=== PATIENT | female | born 1990 | race Hispanic/Latino ===

== ENCOUNTER 2017-09-13 18:32 | Emergency (ER) | payer SELFPAY ==
[2017-09-13 20:28] LABS: Urine Blood NEGATIVE (NEG); Urine Glucose NEGATIVE (NEG); Urine Protein NEGATIVE (NEG); Urine Specific Gravity 1.025 (1.005-1.030)
[2017-09-13] MEDS ORDERED: DEXAMETHASONE 10 MG/ML VIAL ONE (21:28)
[2017-09-13] MEDS ORDERED: KETOROLAC 30 MG/ML INJ ONE (21:29)
[2017-09-13] MEDS ORDERED: DIPHENHYDRAMINE 50 MG/ML VIAL ONE ×2 (21:29→22:40)
[2017-09-13] MEDS ORDERED: METOCLOPRAMIDE 10 MG/2mL INJ ONE (21:29)
--- NOTE | 2017-09-13 23:28 | ER ---
Nurse's Notes [facility] Name: Brittney Wang Age: 27 yrs Sex: Female : 1990 Arrival Date: 09/13/2017 Time: 19:02 Bed 20 Private MD: Diagnosis: Migraine Presentation: 09/13 19:05 Presenting complaint: Patient states: I have had a really bad headache all week and now la1 I can barely eat and I have been dry heaving a lot from the pain. Transition of care: patient was not received from another setting of care. Onset of symptoms was September 13, 2017. Care prior to arrival: None. 19:05 Method Of Arrival: Ambulatory la1 19:05 Acuity: SUKUMAR 3 la1 Triage Assessment: 19:20 Headache History: The patient has had previous headaches and this one is similar to jd3 previous episodes. Pain: Pain began 1 week ago Also complains of nausea. 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 - Social history:: Smoking status: Patient/guardian denies using tobacco. Screenin:19 Abuse screen: Denies threats or abuse. Nutritional screening: No deficits noted. jd3 Tuberculosis screening: No symptoms or risk factors identified. Fall Risk None identified. Assessment: 19:15 General: Appears uncomfortable, Behavior is cooperative, appropriate for age, anxious, jd3 Reports Hx of viral meningitis. Pain: Complains of pain in head Pain currently is 8 out of 10 on a pain scale. Quality of pain is described as sharp, throbbing, Is continuous. Neuro: Level of Consciousness is awake, alert, obeys commands, Oriented to person, place, time, situation, Moves all extremities. Gait is steady, Speech is normal, Facial symmetry appears normal, Pupils are PERRLA, Intact. Cardiovascular: Heart tones S1 S2 present Capillary refill < 3 seconds Patient's skin is warm and dry. Respiratory: Airway is patent Respiratory effort is even, unlabored, Respiratory pattern is regular, symmetrical, Breath sounds are clear bilaterally. GI: Abdomen is round Reports nausea, Patient currently denies abdominal pain. : No signs and/or symptoms were reported regarding the genitourinary system. EENT: No signs and/or symptoms were reported regarding the EENT system. Derm: Skin is intact, Skin is dry, Skin is normal, Skin temperature is warm. Musculoskeletal: Circulation, motion, and sensation intact. Range of motion: intact in all extremities. 21:41 Reassessment: Patient appears in no apparent distress at this time. Patient and/or jd3 family updated on plan of care and expected duration. Pain level reassessed. Patient is alert, oriented x 3, equal unlabored respirations, skin warm/dry/pink. Vital Signs: 19:05 BP 123 / 83; Pulse 90; Resp 16; Temp 98.3; Pulse Ox 100% on R/A; Weight 58.97 kg; la1 Height 4 ft. 9 in. (144.78 cm); 21:40 BP 115 / 69; Pulse 81; Resp 17 S; Pulse Ox 97% on R/A; jd3 23:41 BP 103 / 65; Pulse 74; Resp 17 S; Pulse Ox 98% on R/A; Pain 0/10; jd3 19:05 Body Mass Index 28.13 (58.97 kg, 144.78 cm) la1 ED Course: 19:02 Patient arrived in ED. as 19:05 Triage completed. la1 19:06 Arm band placed on right wrist. la1 19:15 Mack Swann, MACY is Primary Nurse. jd3 19:19 Patient has correct armband on for positive identification. Bed in low position. Call jd3 light in reach. Side rails up X 1. 19:47 F[facility] Zamora [facility]. jr8 19:47 Zane Haro MD is Attending Physician. jr8 21:05 Inserted saline lock: 20 gauge in right antecubital area, using aseptic technique. jd3 Blood collected. 23:41 No provider procedures requiring assistance completed. IV discontinued, intact, jd3 bleeding controlled, No redness/swelling at site. Pressure dressing applied. Administered Medications: 21:20 Drug: Decadron - Dexamethasone 10 mg Route: IVP; Site: right antecubital; jd3 23:42 Follow up: Response: No adverse reaction; Marked relief of symptoms jd3 21:21 Drug: Reglan 10 mg Route: IVP; Site: right antecubital; jd3 23:42 Follow up: Response: No adverse reaction; Marked relief of symptoms jd3 21:21 Drug: Benadryl 25 mg Route: IVP; Site: right antecubital; jd3 23:42 Follow up: Response: No adverse reaction; Marked relief of symptoms jd3 21:21 Drug: TORadol 30 mg Route: IVP; Site: right antecubital; jd3 23:42 Follow up: Response: No adverse reaction; Marked relief of symptoms jd3 22:25 Drug: Benadryl 25 mg Route: IVP; Site: right antecubital; jd3 23:43 Follow up: Response: No adverse reaction; Marked relief of symptoms jd3 Outcome: 23:27 Discharge ordered by . jr8 23:41 Discharged to home ambulatory, with family. jd3 23:41 Condition: stable 23:41 Discharge instructions given to patient, Instructed on discharge instructions, follow up and referral plans. Demonstrated understanding of instructions, follow-up care, medications, Prescriptions given X 1. 23:43 Patient left the ED. jd3 Signatures: Coreen Pop Josh, PA PA jr8 Lito Rust RN RN la1 Mack Swann RN RN jd3 Corrections: (The following items were deleted from the chart) 19:18 19:15 General: Appears uncomfortable, jd3 jd3 21:42 21:40 BP 107 / 79; Pulse 111bpm; Resp 17bpm; Spontaneous; Pulse Ox 100% RA; jd3 jd3
--- NOTE | 2017-09-13 23:28 | EDPHYS ---
Physician Documentation [facility] Name: Brittney Wang Age: 27 yrs Sex: Female : 1990 Arrival Date: 09/13/2017 Time: 19:02 Bed 20 Private MD: ED Physician Zane Haro HPI: 09/13 21:13 This 27 yrs old Female presents to ER via Ambulatory with complaints of jr8 Headache. 21:13 The patient complains of pain to the forehead. The patient describes the headache as jr8 constant, throbbing. Onset: The symptoms/episode began/occurred acutely, 1 week(s) ago. Associated signs and symptoms: Pertinent positives: nausea, Photophobia. Severity of symptoms: At its worst the pain was moderate, in the emergency department the pain is unchanged. Headache History: Other lasting longer this time. The symptoms are alleviated by nothing. the symptoms are aggravated by lights, movement, noise. The patient has experienced similar episodes in the past, several times. The patient has not recently seen a physician. 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 - Social history:: Smoking status: Patient/guardian denies using tobacco. ROS: 21:13 Eyes: Negative for injury, pain, redness, and discharge, ENT: Negative for injury, jr8 pain, and discharge, Neck: Negative for injury, pain, and swelling, Cardiovascular: Negative for chest pain, palpitations, and edema, Respiratory: Negative for shortness of breath, cough, wheezing, and pleuritic chest pain, Abdomen/GI: Negative for abdominal pain, nausea, vomiting, diarrhea, and constipation, Back: Negative for injury and pain, MS/Extremity: Negative for injury and deformity, Skin: Negative for injury, rash, and discoloration. 21:13 Neuro: Positive for dizziness, headache, Negative for altered mental status, gait disturbance, hearing loss, loss of consciousness, numbness, seizure activity, speech changes, syncope, near syncope, tingling, tinnitus, tremor, visual changes, weakness. Exam: 21:13 Head/Face: Normocephalic, atraumatic. Eyes: Pupils equal round and reactive to light, jr8 extra-ocular motions intact. Lids and lashes normal. Conjunctiva and sclera are non-icteric and not injected. Cornea within normal limits. Periorbital areas with no swelling, redness, or edema. ENT: Nares patent. No nasal discharge, no septal abnormalities noted. Tympanic membranes are normal and external auditory canals are clear. Oropharynx with no redness, swelling, or masses, exudates, or evidence of obstruction, uvula midline. Mucous membranes moist. Neck: Trachea midline, no thyromegaly or masses palpated, and no cervical lymphadenopathy. Supple, full range of motion without nuchal rigidity, or vertebral point tenderness. No Meningismus. Cardiovascular: Regular rate and rhythm with a normal S1 and S2. No gallops, murmurs, or rubs. Normal PMI, no JVD. No pulse deficits. Respiratory: Lungs have equal breath sounds bilaterally, clear to auscultation and percussion. No rales, rhonchi or wheezes noted. No increased work of breathing, no retractions or nasal flaring. Abdomen/GI: Soft, non-tender, with normal bowel sounds. No distension or tympany. No guarding or rebound. No evidence of tenderness throughout. Back: No spinal tenderness. No costovertebral tenderness. Full range of motion. Skin: Warm, dry with normal turgor. Normal color with no rashes, no lesions, and no evidence of cellulitis. MS/ Extremity: Pulses equal, no cyanosis. Neurovascular intact. Full, normal range of motion. 21:13 Neuro: Orientation: to person, place, time \T\ situation. Mentation: is normal, Memory: is normal, immediate memory is intact, recent memory is intact, remote memory is intact, Cranial nerves: CN I not tested, CN II- XII are normal as tested, visual garvey are intact. extraocular movements are intact, Facial palsy and sensory deficits are absent. Nystagmus is absent. Speech is clear and appropriate. Tongue strength is normal, Cerebellar function: normal finger to nose testing, heel to andrew testing is normal, Motor: moves all fours, strength is 5/5 in all extremities, Sensation: no obvious gross deficits, Gait: not tested. seizure activity, is not displayed by the patient, Abnormal movements: there are no abnormal movements. Vital Signs: 19:05 BP 123 / 83; Pulse 90; Resp 16; Temp 98.3; Pulse Ox 100% on R/A; Weight 58.97 kg; la1 Height 4 ft. 9 in. (144.78 cm); 21:40 BP 115 / 69; Pulse 81; Resp 17 S; Pulse Ox 97% on R/A; jd3 23:41 BP 103 / 65; Pulse 74; Resp 17 S; Pulse Ox 98% on R/A; Pain 0/10; jd3 19:05 Body Mass Index 28.13 (58.97 kg, 144.78 cm) la1 MDM: 19:47 Patient medically screened. [facility] 23:27 Data reviewed: vital signs, nurses notes, and as a result, I will discharge patient. [facility] Data interpreted: Pulse oximetry: on room air is 97 %. Interpretation: normal. Counseling: I had a detailed discussion with the patient and/or guardian regarding: the historical points, exam findings, and any diagnostic results supporting the discharge/admit diagnosis, the need for outpatient follow up, a family practitioner, to return to the emergency department if symptoms worsen or persist or if there are any questions or concerns that arise at home. Response to treatment: the patient's symptoms have resolved after treatment. 09/13 20:27 Order name: Urine Dipstick--Ancillary (enter results); Complete Time: 20:30 [facility] 09/13 20:27 Order name: Urine --Ancillary (enter results); Complete Time: 20:30 [facility] 09/13 19:48 Order name: Urine Test (obtain specimen); Complete Time: 21:00 [facility] 09/13 19:48 Order name: Urine Dipstick-Ancillary (obtain specimen); Complete Time: 21:00 [facility] 09/13 20:24 Order name: IV; Complete Time: 21:06 [facility] Administered Medications: 21:20 Drug: Decadron - Dexamethasone 10 mg Route: IVP; Site: right antecubital; jd3 23:42 Follow up: Response: No adverse reaction; Marked relief of symptoms jd3 21:21 Drug: Reglan 10 mg Route: IVP; Site: right antecubital; jd3 23:42 Follow up: Response: No adverse reaction; Marked relief of symptoms jd3 21:21 Drug: Benadryl 25 mg Route: IVP; Site: right antecubital; jd3 23:42 Follow up: Response: No adverse reaction; Marked relief of symptoms jd3 21:21 Drug: TORadol 30 mg Route: IVP; Site: right antecubital; jd3 23:42 Follow up: Response: No adverse reaction; Marked relief of symptoms jd3 22:25 Drug: Benadryl 25 mg Route: IVP; Site: right antecubital; jd3 23:43 Follow up: Response: No adverse reaction; Marked relief of symptoms jd3 Disposition: 09/14 00:20 Co-signature as Attending Physician, Zane Haro MD. laureano Disposition: 09/13/17 23:27 Discharged to Home. Impression: Migraine. - Condition is Stable. - Discharge Instructions: Migraine Headache. - Prescriptions for Fiorinal 50- 325-40 mg Oral Capsule - take 1 capsule by ORAL route every 4 hours As needed - not to exceed 6 capsules per day; 20 capsule. - Medication Reconciliation Form, Thank You Letter, Antibiotic Education, Prescription Opioid Use form. - Follow up: Private Physician; When: 2 - 3 days; Reason: Recheck today's complaints, Continuance of care, Re-evaluation by your physician. - Problem is new. - Symptoms have improved. Signatures: Dispatcher [employer] EDZane Little MD MD pkFadi Gao PA PA jr8 Lito Rust RN RN la1 Mack Swann RN RN jd3
[2017-09-13 23:49] VITALS: TEMP 98.3
[2017-09-13 23:51] VITALS: BP 103/65; O2SAT 98
== END 2017-09-13 23:43 | disposition home or self-care (01) ==
LOC: ER 18:32
DX: G43.909 Migraine, unspecified, not intractable, without status migrainosus (principal)
CPT/HCPCS: 81003; 81025; 96374; 96375; 99284; J1100; J2765

== ENCOUNTER 2018-07-19 17:18 | Emergency (ER) | payer SELFPAY ==
--- NOTE | 2018-07-19 20:49 | ER ---
Nurse's Notes [facility] Name: Brittney Wang Age: 28 yrs Sex: Female : 1990 Arrival Date: 07/19/2018 Time: 17:22 Bed Waiting Private MD: None, None Diagnosis: Presentation: 07/19 17:31 Presenting complaint: Patient states: pt reports having headache at the base of her sg neck, described as contractions, reports that losing voice on Thursday, bodyaches started Thursday, and today reports having N/V and unable to hold liquids, reports throwing up water as well. Transition of care: patient was not received from another setting of care. Onset of symptoms was July 19, 2018. Risk Assessment: Do you want to hurt yourself or someone else? Patient reports no desire to harm self or others. Initial Sepsis Screen: Does the patient meet any 2 criteria? No. Patient's initial sepsis screen is negative. Care prior to arrival: None. 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 - Social history:: Smoking status: Patient/guardian denies using tobacco. - Ebola Screening: : Patient negative for fever greater than or equal to 101.5 degrees Fahrenheit, and additional compatible Ebola Virus Disease symptoms Patient denies exposure to infectious person Patient denies travel to an Ebola-affected area in the 21 days before illness onset No symptoms or risks identified at this time. Vital Signs: 17:33 BP 121 / 93; Pulse 98; Resp 19; Temp 98.0; Pulse Ox 100% on R/A; Weight 68.04 kg; sg Height 5 ft. 2 in. (157.48 cm); Pain 10/10; 17:33 Body Mass Index 27.44 (68.04 kg, 157.48 cm) sg ED Course: 17:22 Patient arrived in ED. tw3 17:22 None, None is Private Physician. tw3 17:31 Triage completed. sg 17:31 Arm band placed on. sg 19:24 Patient's name was called from ER [employer]. No response. 19:26 David Lopez MD is Attending Physician. 20:00 Patient's name was called from ER [email or web address]. No response. 20:47 Patient's [facility] No response. fc Administered Medications: No medications were administered Outcome: 20:47 Patient left the ED. fc Signatures: Graeme Mckeon RN RN Shara Crespo RN RN Andrei, Keena tw3 David Lopez MD MD
[2018-07-19 20:57] VITALS: BP 121/93; TEMP 98; O2SAT 100
== END 2018-07-19 20:47 | disposition left against medical advice (07) ==
LOC: ER 17:18
DX: R51 Headache (principal); R11.2 Nausea with vomiting, unspecified; Z53.21 Procedure and treatment not carried out due to patient leaving prior to being seen by health care provider
CPT/HCPCS: 99281

== ENCOUNTER 2018-08-19 12:44 | Emergency (ER) | payer SELFPAY ==
[2018-08-19] MEDS ORDERED: ONDANSETRON 4 MG (ODT) TAB ONE (13:08)
--- NOTE | 2018-08-19 15:50 | EDPHYS ---
Physician Documentation [facility] Name: Brittney Wang Age: 28 yrs Sex: Female : 1990 Arrival Date: 08/19/2018 Time: 12:46 Bed 10 Private MD: ED Physician Layo Suresh HPI: 08/19 13:59 This 28 yrs old Female presents to ER via Ambulatory with complaints of kav Vomiting, Headache, Ear Pain. 15:44 The patient or guardian reports cough, flu symptoms, low-grade fever, myalgias, no kav appetite. Onset: The symptoms/episode began/occurred acutely. 15:45 Onset: The symptoms/episode began/occurred 2 day(s) ago. Severity of symptoms: At their kav worst the symptoms were moderate, just prior to arrival. Modifying factors: The symptoms are alleviated by nothing, the symptoms are aggravated by nothing. Associated signs and symptoms: Pertinent positives: earache, fever, nausea, vomiting, Pertinent negatives:. The patient has not experienced similar symptoms in the past. The patient has not recently seen a physician. 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 - Social history:: Smoking status: Patient/guardian denies using tobacco. - Ebola Screening: : No symptoms or risks identified at this time. - Family history:: not pertinent. - Hospitalizations: : No recent hospitalization is reported. ROS: 15:45 Constitutional: Negative for fever, chills, and weight loss, Eyes: Negative for injury, kav pain, redness, and discharge, ENT: Negative for injury, pain, and discharge, Neck: Negative for injury, pain, and swelling, Cardiovascular: Negative for chest pain, palpitations, and edema, Back: Negative for injury and pain, : Negative for injury, bleeding, discharge, and swelling, MS/Extremity: Negative for injury and deformity, Skin: Negative for injury, rash, and discoloration, Neuro: Negative for headache, weakness, numbness, tingling, and seizure, Psych: Negative for depression, anxiety, suicide ideation, homicidal ideation, and hallucinations, Allergy/Immunology: Negative for hives, rash, and allergies, Endocrine: Negative for neck swelling, polydipsia, polyuria, polyphagia, and marked weight changes, Hematologic/Lymphatic: Negative for swollen nodes, abnormal bleeding, and unusual bruising. 15:45 Respiratory: Positive for cough, "sounds productive", Negative for shortness of breath, wheezing. 15:45 Abdomen/GI: Positive for nausea and vomiting, Negative for diarrhea. Exam: 15:45 Constitutional: This is a well developed, well nourished patient who is awake, alert, kav and in no acute distress. Head/Face: Normocephalic, atraumatic. Eyes: Pupils equal round and reactive to light, extra-ocular motions intact. Lids and lashes normal. Conjunctiva and sclera are non-icteric and not injected. Cornea within normal limits. Periorbital areas with no swelling, redness, or edema. ENT: Nares patent. No nasal discharge, no septal abnormalities noted. Tympanic membranes are normal and external auditory canals are clear. Oropharynx with no redness, swelling, or masses, exudates, or evidence of obstruction, uvula midline. Mucous membranes moist. Neck: Trachea midline, no thyromegaly or masses palpated, and no cervical lymphadenopathy. Supple, full range of motion without nuchal rigidity, or vertebral point tenderness. No Meningismus. Chest/axilla: Normal chest wall appearance and motion. Nontender with no deformity. No lesions are appreciated. Cardiovascular: Regular rate and rhythm with a normal S1 and S2. No gallops, murmurs, or rubs. Normal PMI, no JVD. No pulse deficits. Back: No spinal tenderness. No costovertebral tenderness. Full range of motion. Skin: Warm, dry with normal turgor. Normal color with no rashes, no lesions, and no evidence of cellulitis. MS/ Extremity: Pulses equal, no cyanosis. Neurovascular intact. Full, normal range of motion. Neuro: Awake and alert, GCS 15, oriented to person, place, time, and situation. Cranial nerves II-XII grossly intact. Motor strength 5/5 in all extremities. Sensory grossly intact. Cerebellar exam normal. Normal gait. Psych: Awake, alert, with orientation to person, place and time. Behavior, mood, and affect are within normal limits. 15:45 Respiratory: the patient does not display signs of respiratory distress, Respirations: normal, no acute changes, Breath sounds: are clear throughout, no acute changes, throughout. 15:45 Abdomen/GI: Inspection: abdomen appears normal, Bowel sounds: normal, Palpation: abdomen is soft and non-tender. Vital Signs: 12:51 BP 133 / 88; Pulse 82; Resp 16; Temp 99.4; Pulse Ox 100% on R/A; Pain 7/10; hb MDM: 13:59 Medical screening is not applicable. [facility] 15:45 Differential Diagnosis: Bronchitis Influenza Upper Respiratory Infection Pneumonia. [facility] Data reviewed: vital signs, nurses notes, lab test result(s), Flu: positive. 08/19 12:53 Order name: Flu; Complete Time: 15:43 hb 08/19 15:43 Interpretation: Abnormal. [facility] 08/19 12:54 Order name: Strep; Complete Time: 15:43 hb 08/19 15:43 Interpretation: Within normal limits. [facility] 08/19 13:16 Order name: Throat Culture EDMS Administered Medications: 12:56 Drug: Zofran 4 mg Route: PO; hb 14:00 Follow up: Response: No adverse reaction iw Disposition: 16:20 Co-signature as Attending Physician, Azra NUNEZ I agree with the assessment and kdr plan of care. Disposition: 08/19/18 15:48 Discharged to Home. Impression: Influenza due to identified novel influenza A virus. - Condition is Stable. - Discharge Instructions: Influenza, Adult. - Prescriptions for Tamiflu 75 mg Oral Capsule - take 1 tablet by ORAL route every 12 hours for 5 days; 10 tablet. - Medication Reconciliation Form, Thank You Letter, Work release form form. - Follow up: Private Physician; When: 5 - 6 days; Reason: Recheck today's complaints, Continuance of care, Re-evaluation by your physician. - Problem is new. - Symptoms have improved. Signatures: Dispatcher [employer] EDMS Layo Suresh MD MD kdr Vern, Katherine, FNP FNP kav Williams, Irene, RN RN iw Baxter, Heather, RN RN Corrections: (The following items were deleted from the chart) 16:04 15:48 08/19/2018 15:48 Discharged to Home. Impression: Influenza due to identified iw novel influenza A virus. Condition is Stable. Forms are Medication Reconciliation Form, Thank You Letter, Antibiotic Education, Prescription Opioid Use. Follow up: Private Physician; When: 5 - 6 days; Reason: Recheck today's complaints, Continuance of care, Re-evaluation by your physician. Problem is new. Symptoms have improved. stacey
--- NOTE | 2018-08-19 15:50 | ER ---
Nurse's Notes [facility] Name: Brittney Wang Age: 28 yrs Sex: Female : 1990 Arrival Date: 08/19/2018 Time: 12:46 Bed 10 Private MD: Diagnosis: Influenza due to identified novel influenza A virus Presentation: 08/19 12:51 Presenting complaint: Nonproductive cough, headache, sore throat, body aches, fever, hb and N/V x 2 days. TMAX 100. Son tested flu + yesterday. Transition of care: patient was not received from another setting of care. Onset of symptoms was August 18, 2018. Risk Assessment: Do you want to hurt yourself or someone else? Patient reports no desire to harm self or others. Care prior to arrival: None. 12:51 Method Of Arrival: Ambulatory hb 12:51 Acuity: SUKUMAR 4 hb 15:30 Initial Sepsis Screen: Does the patient meet any 2 criteria? No. Patient's initial iw sepsis screen is negative. Does the patient have a suspected source of infection? No. Patient's initial sepsis screen is negative. Triage Assessment: 15:00 General: Appears in no apparent distress. Behavior is calm. GI: Reports vomiting. 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 - Social history:: Smoking status: Patient/guardian denies using tobacco. - Ebola Screening: : No symptoms or risks identified at this time. - Family history:: not pertinent. - Hospitalizations: : No recent hospitalization is reported. Screenin:00 Abuse screen: Denies threats or abuse. Denies injuries from another. Nutritional iw screening: No deficits noted. Tuberculosis screening: No symptoms or risk factors identified. Fall Risk None identified. Assessment: 15:00 General: Appears in no apparent distress. Behavior is calm, cooperative. General: iw Reports fever for 1-2 days. Pain: Complains of pain in head. Neuro: Level of Consciousness is awake, alert, obeys commands, Moves all extremities. Cardiovascular: Patient's skin is warm and dry. Respiratory: Respiratory effort is even, unlabored, Respiratory pattern is regular. GI: Abdomen is. Derm: Skin is intact, is healthy with good turgor. Vital Signs: 12:51 BP 133 / 88; Pulse 82; Resp 16; Temp 99.4; Pulse Ox 100% on R/A; Pain 7/10; hb ED Course: 12:46 Patient arrived in ED. rg4 12:51 Triage completed. hb 12:51 Arm band placed on. hb 13:48 Gillian Costa, RN is Primary Nurse. iw 13:59 Azra Marvin F[facility] kav 13:59 Layo Suresh MD is Attending Physician. kav 15:00 Patient has correct armband on for positive identification. iw 16:00 No provider procedures requiring assistance completed. Patient did not have IV access iw during this emergency room visit. Administered Medications: 12:56 Drug: Zofran 4 mg Route: PO; hb 14:00 Follow up: Response: No adverse reaction iw Outcome: 15:48 Discharge ordered by MD. kav 16:03 Discharged to home ambulatory. iw 16:03 Condition: good 16:03 Discharge instructions given to patient, Instructed on discharge instructions, follow up and referral plans. Demonstrated understanding of instructions, follow-up care, medications, Prescriptions given X 1. 16:04 Patient left the ED. iw Signatures: Azra Marvin FNP FNP kav Williams, Irene, RN RN Khushi Boateng RN RN hb Garcia, Rubi rg4 Corrections: (The following items were deleted from the chart) 12:53 12:51 Presenting complaint: Nonproductive cough, headache, body aches, fever, and N/V x hb 2 days. hb 12:54 12:51 Presenting complaint: Nonproductive cough, headache, body aches, fever, and N/V x hb 2 days. hb 12:55 12:51 Presenting complaint: Nonproductive cough, headache, sore throat, body aches, hb fever, and N/V x 2 days. TMAX 100 hb
[2018-08-19 16:16] VITALS: BP 133/88; TEMP 99.4; O2SAT 100
== END 2018-08-19 16:04 | disposition home or self-care (01) ==
LOC: ER 12:44
DX: J10.1 Influenza due to other identified influenza virus with other respiratory manifestations (principal)
CPT/HCPCS: 87070; 87081; 87804; 99283

== ENCOUNTER 2022-01-24 17:18 | Emergency (ER) | payer SELFPAY ==
[2022-01-24 18:52] LABS: Urine Blood Trace-intact (Negative); Urine Glucose Negative (Negative); Urine Protein Negative (Negative); Urine Specific Gravity 1.015 (1.005-1.030)
[2022-01-24 18:59] LABS: Absolute Lymphocytes (CBC) 2.1 K/uL (0.7-4.9); Hematocrit 35.8 % (36.0-45.0); Lymphocytes % 19.3 % (15.3-44.8); MCV 88.2 fL (80-100); MPV 8.5 fL (7.6-11.3); RBC Red Blood Cell Count 4.06 M/uL (3.86-4.86)
[2022-01-24] MEDS ORDERED: Ringers Lactate 1,000 ML IV ONE (19:06)
[2022-01-24 19:20] LABS: Magnesium 2.1 mg/dL (1.8-2.4); Potassium 3.6 mmol/L (3.5-5.1); Troponin High Sensitivity 4.2 pg/mL (<58.9)
--- NOTE | 2022-01-24 19:44 | EDPHYS ---
Physician Documentation [facility] Name: Brittney Wang Age: 31 yrs Sex: Female : 1990 Arrival Date: 01/24/2022 Time: 17:20 Bed 15 Private MD: ED Physician Elías Mueller HPI: 01/24 17:40 This 31 yrs old Female presents to ER via Ambulatory with complaints of 13wks jmm , High Blood Pressure. 17:40 The patient presents with a history of heart racing. Onset: The symptoms/episode jmm began/occurred acutely, this morning. Duration: The patient or guardian reports multiple episodes, that are intermittent, that wax and wane. Modifying factors: The symptoms are aggravated by nothing. The symptoms are alleviated by nothing. This is a 31 year old female currently 13 weeks iup that presents to the ED with complaints of fatigue beginning this morning with intermittent episodes of palpitations she describes as racing beats. Denies chest pain or shortness of breath. Patient has concerns she has elevated blood pressure. Also complains of intermittent headache but states these headaches are consistent with previous headaches. Denies fever or neck stiffness. 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 - Social history:: Smoking status: Patient denies any tobacco usage or history of. ROS: 17:40 Constitutional: Positive for fatigue. jmm 17:40 Cardiovascular: Positive for palpitations. 17:40 All other systems are negative. Exam: 17:40 Constitutional: This is a well developed, well nourished patient who is awake, alert, jmm and in no acute distress. Head/Face: atraumatic. Eyes: EOMI, no conjunctival erythema appreciated ENT: Moist Mucus Membranes Neck: Trachea midline, Supple Chest/axilla: Normal chest wall appearance and motion. Cardiovascular: Regular rate and rhythm. No edema appreciated Respiratory: Normal respirations, no respiratory distress appreciated Abdomen/GI: Non distended Back: Normal ROM Skin: General appearance color normal MS/ Extremity: Moves all extremities, no obvious deformities appreciated, no edema noted to the lower extremities Neuro: Awake and alert Psych: Behavior is normal, Mood is normal, Patient is cooperative and pleasant 17:40 ECG was reviewed by the Attending Physician. Vital Signs: 17:32 BP 133 / 75; Pulse 80; Resp 16; Temp 98.6(O); Pulse Ox 98% on R/A; Height 4 ft. 9 in. vg1 (144.78 cm); Pain 0/10; 19:00 BP 115 / 68; Pulse 77; Resp 18; Pulse Ox 100% ; Pain 0/10; kb3 20:45 BP 115 / 68; Pulse 78; Resp 18; Pulse Ox 100% ; Pain 0/10; kb3 MDM: 17:40 Patient medically screened. [facility] 19:41 Data reviewed: vital signs, nurses notes. Counseling: I had a detailed discussion with power the patient and/or guardian regarding: the historical points, exam findings, and any diagnostic results supporting the discharge/admit diagnosis, lab results, the need for outpatient follow up, to return to the emergency department if symptoms worsen or persist or if there are any questions or concerns that arise at home. ED course: Labs unremarkable, patient states feeling much better. Patient advised to follow up with pcp and otherwise given strict return precautions. Patient understood and agrees with the plan of care. . 01/24 18:00 Order name: Basic Metabolic Panel; Complete Time: 19:21 [facility] 01/24 18:00 Order name: CBC with Diff; Complete Time: 19:15 [facility] 01/24 18:00 Order name: Magnesium; Complete Time: 19:21 [facility] 01/24 18:00 Order name: NT PRO-BNP; Complete Time: 19:21 [facility] 01/24 18:00 Order name: Troponin HS; Complete Time: 19:21 [facility] 01/24 18:52 Order name: Urine Dipstick-Ancillary; Complete Time: 19:15 [facility] 01/24 18:00 Order name: EKG; Complete Time: 18:01 [facility] 01/24 18:00 Order name: Cardiac monitoring; Complete Time: 18:47 [facility] 01/24 18:00 Order name: EKG - Nurse/Tech; Complete Time: 18:47 [facility] 01/24 18:00 Order name: IV Saline Lock; Complete Time: 18:47 [facility] 01/24 18:00 Order name: Labs collected and sent; Complete Time: 18:47 [facility] 01/24 18:00 Order name: O2 Per Protocol; Complete Time: 18:47 [facility] 01/24 18:00 Order name: O2 Sat Monitoring; Complete Time: 18:47 [facility] 01/24 18:00 Order name: Urine Dipstick-Ancillary (obtain specimen); Complete Time: 18:56 [facility] 01/24 18:00 Order name: Heart Tones; Complete Time: 21:06 [facility] EC:40 Rate is 71 beats/min. Rhythm is regular. No ST changes noted. Reviewed by me. [facility] Administered Medications: 18:58 Drug: Lactated Ringers Solution 1000 ml Route: IV; Rate: 1000 bolus; Site: right kb3 antecubital; 20:15 Follow up: Response: No adverse reaction; IV Status: Completed infusion; IV Intake: kb3 1000ml Disposition Summary: 01/24/22 19:44 Discharge Ordered Location: Home [facility] Condition: Stable [facility] Diagnosis - Palpitations [facility] Followup: [facility] - With: Private Physician - When: 2 - 3 days - Reason: Recheck today's complaints, Continuance of care, Re-evaluation by your physician Discharge Instructions: - Discharge Summary Sheet [facility] - Hyperemesis Gravidarum [facility] - Palpitations [facility] - Eating Plan for Women [facility] Forms: - Medication Reconciliation Form [facility] - Thank You Letter [facility] - Antibiotic Education [facility] - Prescription Opioid Use [facility] - Work release form kb3 Prescriptions: - Diclegis 10-10 mg Oral tablet,delayed release (DR/EC) - take 1 tablet by ORAL route once daily; 30 tablet; Refills: 0, Product [facility] Selection Permitted - ondansetron 4 mg Oral tablet,disintegrating - take 1 tablet by ORAL route every 4-6 hours As needed; 30 tablet; Refills: 0, [facility] Product Selection Permitted Addendum: 01/26/2022 14:01 Attestation: The patient's history, exam findings, diagnostics, and a summary of any j r11 interventions or procedures was reviewed in detail with Duke GARCIA. Signatures: Dispatcher [employer] EDDuke Arciniega PA PA jmm Garcia, Victoria, RN RN vg1 Elías Mueller MD MD jr11 Jennifer Uriostegui RN RN kb3 Corrections: (The following items were deleted from the chart) 01/24 18:32 18:01 Chest Single View+RAD.RAD.BRZ ordered. EDMS EDMS
--- NOTE | 2022-01-24 19:44 | ER ---
Nurse's Notes [facility] Name: Brittney Wang Age: 31 yrs Sex: Female : 1990 Arrival Date: 01/24/2022 Time: 17:20 Bed 15 Private MD: Diagnosis: Palpitations Presentation: 01/24 17:32 Chief complaint: Patient states: Pt is approximately 13 weeks .At 1400 BP was vg1 149 systolic, at 1540 BP was 169 systolic. Denies CP, SOB, NV, or h/a. Stated "feels like my heart is racing.". Coronavirus screen: Vaccine status: Patient reports being unvaccinated. Client denies travel out of the [place] in the last 14 days. Ebola Screen: Patient denies exposure to infectious person. Patient denies travel to an Ebola-affected area in the 21 days before illness onset. Initial Sepsis Screen: Does the patient meet any 2 criteria? No. Patient's initial sepsis screen is negative. Does the patient have a suspected source of infection? No. Patient's initial sepsis screen is negative. Risk Assessment: Do you want to hurt yourself or someone else? Patient reports no desire to harm self or others. Onset of symptoms was January 24, 2022. 17:32 Method Of Arrival: Ambulatory vg1 17:32 Acuity: SUKUMAR 3 vg1 Triage Assessment: 17:35 General: Appears comfortable, Behavior is calm, cooperative. Pain: Denies pain. Neuro: vg1 Level of Consciousness is awake, alert, obeys commands, Oriented to person, place, time, situation. Cardiovascular: Patient's skin is warm and dry. Chest pain is denied. 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 - Social history:: Smoking status: Patient denies any tobacco usage or history of. Screenin:56 Abuse screen: Denies threats or abuse. Denies injuries from another. Nutritional kb3 screening: Has had N/V for 3 or more days. Tuberculosis screening: No symptoms or risk factors identified. Fall Risk None identified. Assessment: 17:56 Reassessment: No changes from previously documented assessment. General: Appears in no kb3 apparent distress. comfortable, Behavior is calm, cooperative. Pain: Denies pain. Cardiovascular: Reports High blood pressure with Heart tones present Capillary refill < 3 seconds Patient's skin is warm and dry. Pulses are 2+ in right radial artery and left radial artery Rhythm is regular Chest pain is denied. Respiratory: No deficits noted. GI: Reports nausea, vomiting. 19:00 General: Pt reports feeling well. No complaints. kb3 Vital Signs: 17:32 BP 133 / 75; Pulse 80; Resp 16; Temp 98.6(O); Pulse Ox 98% on R/A; Height 4 ft. 9 in. vg1 (144.78 cm); Pain 0/10; 19:00 BP 115 / 68; Pulse 77; Resp 18; Pulse Ox 100% ; Pain 0/10; kb3 20:45 BP 115 / 68; Pulse 78; Resp 18; Pulse Ox 100% ; Pain 0/10; kb3 ED Course: 17:20 Patient arrived in ED. mr 17:23 Duke Kitchen PA is PHCP. [facility] 17:23 Elías Mueller MD is Attending Physician. [facility] 17:35 Triage completed. vg1 17:35 Arm band placed on. vg1 17:56 Jennifer Uriostegui, RN is Primary Nurse. kb3 17:56 Patient has correct armband on for positive identification. Bed in low position. Call kb3 light in reach. Adult w/ patient. 17:56 No provider procedures requiring assistance completed. kb3 18:30 Inserted saline lock: 20 gauge in right antecubital area, using aseptic technique. kb3 Blood collected. 21:08 IV discontinued, intact, bleeding controlled, No redness/swelling at site. kb3 Administered Medications: 18:58 Drug: Lactated Ringers Solution 1000 ml Route: IV; Rate: 1000 bolus; Site: right kb3 antecubital; 20:15 Follow up: Response: No adverse reaction; IV Status: Completed infusion; IV Intake: kb3 1000ml Medication: 17:56 VIS not applicable for this client. kb3 Intake: 20:15 IV: 1000ml; Total: 1000ml. kb3 Outcome: 19:44 Discharge ordered by MD. steve 21:07 Discharged to home ambulatory, with friend. kb3 21:07 Condition: good 21:07 Discharge instructions given to patient, Instructed on discharge instructions, follow up and referral plans. medication usage, Demonstrated understanding of instructions, follow-up care, medications, Prescriptions given X 2. 21:09 Patient left the ED. kb3 Signatures: Duke Kitchen PA PA jmm Rivera, Mary mr Garcia, Victoria, RN RN vg1 Jennifer Uriostegui, RN RN kb3
[2022-01-24 21:38] VITALS: TEMP 98.6
[2022-01-24 21:40] VITALS: BP 115/68; O2SAT 100
== END 2022-01-24 21:09 | disposition home or self-care (01) ==
LOC: ER 17:18
DX: O26.891 Other specified pregnancy related conditions, first trimester (principal); R00.2 Palpitations; Z3A.13 13 weeks gestation of pregnancy
CPT/HCPCS: 36415; 80048; 81003; 83735; 83880; 84484; 85025; 93005; 96360; 99284; J7120

== ENCOUNTER 2025-01-21 00:01 | Emergency (ER) | payer OTHER, SELFPAY ==
--- NOTE | 2025-01-21 00:58 | EDPHYS ---
Physician Documentation [facility] Name: Brittney Wang Age: 34 yrs Sex: Female : 1990 Arrival Date: 01/21/2025 Time: 00:01 Bed 6 Private MD: ED Physician Raymond Elena HPI: 01/21 01:31 This 34 yrs old Female presents to ER via Ambulatory with complaints of Rash. kb 01:31 Pt is a 34 year old female who presents for rash that started after taking metformin. kb States she started taking metformin in June, developed a rash and stopped it. States she is supposed to have her labs done next month so she decided to start taking the metformin again on January 13. States she developed hives to arms and legs so she quit the medication 3 days ago. States she is still having irritation to vaginal area so she wanted to get it checked. States she had the same vaginal irritation last time she took the metformin. . 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 - Infectious Disease History:: Denies. - Social history:: Smoking status: Patient denies any tobacco usage or history of. ROS: 01:27 Constitutional: As per HPI kb Exam: 01:27 Constitutional: This is a well developed, well nourished patient who is awake, alert, kb and in no acute distress. Head/Face: Normocephalic, atraumatic. ENT: Moist Mucous membranes Cardiovascular: Regular rate Respiratory: Respirations even and unlabored. No increased work of breathing. Talking in full sentences Skin: Warm, dry with normal turgor. Normal color. MS/ Extremity: Pulses equal, no cyanosis. Neurovascular intact. Full, normal range of motion. Neuro: Awake and alert, GCS 15, oriented to person, place, time, and situation. 01:27 : erythema and excoriation to vaginal area, Vital Signs: 00:09 BP 131 / 93; Pulse 111; Resp 16; Temp 98.3; Pulse Ox 100% ; Weight 59.42 kg; Height 4 vc1 ft. 9 in. ; Pain 8/10; 01:11 BP 127 / 89; Pulse 101; Resp 17 S; Pulse Ox 100% on R/A; lg3 00:09 Body Mass Index 28.35 (59.42 kg, 144.78 cm) vc1 00:09 Pain Scale: Adult vc1 MDM: 00:07 Medical Screening Exam initiated kb 01:30 Differential diagnosis: impetigo, allergic reaction, candidiasis, urticaria. Data kb reviewed: vital signs, nurses notes. Counseling: I had a detailed discussion with the patient and/or guardian regarding the historical points, exam findings, and any diagnostic results supporting the discharge/admit diagnosis, the need for outpatient follow up, a family practitioner, to return to the emergency department if symptoms worsen or persist or if there are any questions or concerns that arise at home. Administered Medications: 01:11 Drug: Dexamethasone IM 10 mg IM once Route: IM; Site: right deltoid; lg3 01:20 Follow up: Response: No adverse reaction lg3 01:11 Drug: Famotidine PO 20 mg PO once Route: PO; lg3 01:20 Follow up: Response: No adverse reaction lg3 01:11 Drug: diphenhydrAMINE PO 25 mg PO once Route: PO; lg3 01:20 Follow up: Response: No adverse reaction lg3 Disposition: 04:19 Co-signature as Attending Physician, Raymond Elena MD I agree with the assessment sp4 and plan of care. I reviewed the patient's care provided by the Advanced Practice Provider and agree with the diagnosis and treatment plan. Disposition Summary: 01/21/25 00:57 Discharge Ordered Notes: Location: Home kb Condition: Stable kb Diagnosis - Rash and other nonspecific skin eruption kb Followup: kb - With: Emergency Department - When: As needed - Reason: Worsening of condition Followup: kb - With: Private Physician - When: 2 - 3 days - Reason: Recheck today's complaints, Continuance of care, Re-evaluation by your physician Discharge Instructions: - Discharge Summary Sheet kb - Drug Allergy, Guav-cj-Elto kb - Rash, Adult, [id number] kb Forms: - Medication Reconciliation Form kb - Antibiotic Education kb - Prescription Opioid Use kb - Patient Portal Instructions kb - Leadership Thank You Letter kb Prescriptions: - Pepcid 20 mg Oral Tablet - take 1 tablet ORAL route every 12 hours for 5 days; 10 tablet; Refills: 0, kb Product Selection Permitted Signatures: Toña Jarquin, Erica Schwartz RN RN lg3 Maria A Jorgensen RN RN vc1 Raymond Elena MD MD sp4
--- NOTE | 2025-01-21 00:58 | ER ---
Nurse's Notes [facility] Name: Brittney Wang Age: 34 yrs Sex: Female : 1990 Arrival Date: 01/21/2025 Time: 00:01 Bed 6 Private MD: Diagnosis: Rash and other nonspecific skin eruption Presentation: 01/21 00:09 Chief complaint: Patient states: started taking metformin and got a rash in my private vc1 area. I stopped taking the medication and it went away. I started taking the metformin again and started breaking out in hives and the rash came back. Coronavirus screen: Client denies travel out of the [place] in the last 14 days. At this time, the client does not indicate any symptoms associated with coronavirus-19. Ebola Screen: Patient negative for fever greater than or equal to 101.5 degrees Fahrenheit, and additional compatible Ebola Virus Disease symptoms Patient denies exposure to infectious person. Patient denies travel to an Ebola-affected area in the 21 days before illness onset. No symptoms or risks identified at this time. Initial Sepsis Screen: Does the patient meet any 2 criteria? HR > 90 bpm. No. Patient's initial sepsis screen is negative. Does the patient have a suspected source of infection? No. Patient's initial sepsis screen is negative. Risk Assessment: Do you want to hurt yourself or someone else? Patient reports no desire to harm self or others. Onset of symptoms was January 13, 2025. 00:09 Method Of Arrival: Ambulatory vc1 00:09 Acuity: SUKUMAR 4 vc1 Triage Assessment: 00:14 General: Appears uncomfortable, well nourished, Behavior is calm, cooperative, anxious. vc1 Pain: Complains of pain in groin Pain currently is 8 out of 10 on a pain scale. at worst was 10 out of 10 on a pain scale. Quality of pain is described as stinging, Also complains of itching. 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 - Infectious Disease History:: Denies. - Social history:: Smoking status: Patient denies any tobacco usage or history of. Screenin:31 [facility] ED Fall Risk Assessment (Adult) History of falling in the last 3 months, lg3 including since admission No falls in past 3 months (0 pts) Confusion or Disorientation No (0 pts) Intoxicated or Sedated No (0 pts) Impaired Gait No (0 pts) Mobility Assist Device Used No (0 pt) Altered Elimination No (0 pt) Score/Fall Risk Level 0 - 2 = Low Risk Oriented to surroundings, Maintained a safe environment, Educated pt \T\ family on fall prevention, incl call for assistance when getting out of bed, Assessed \T\ reinforced patient's understanding of fall precautions. Abuse screen: Denies threats or abuse. Denies injuries from another. Nutritional screening: No deficits noted. Tuberculosis screening: No symptoms or risk factors identified. Assessment: 00:31 General: Appears in no apparent distress. uncomfortable, Behavior is cooperative, lg3 anxious. Pain: Complains of pain in groin Pain does not radiate. Pain currently is 8 out of 10 on a pain scale. Quality of pain is described as burning, stinging. Neuro: No deficits noted. Toro Agitation-Sedation Scale (RASS): 0 - Alert and Calm Level of Consciousness is awake, alert, obeys commands, Oriented to person, place, time, situation. Cardiovascular: No deficits noted. Denies chest pain, shortness of breath, Capillary refill < 3 seconds Clubbing of nail beds is absent JVD is absent Patient's skin is warm and dry. Respiratory: No deficits noted. Airway is patent Respiratory effort is even, unlabored, Respiratory pattern is regular, symmetrical. GI: No deficits noted. No signs and/or symptoms were reported involving the gastrointestinal system. : No signs and/or symptoms were reported regarding the genitourinary system. EENT: No deficits noted. No signs and/or symptoms were reported regarding the EENT system. Derm: Skin is intact, is healthy with good turgor, Skin is dry, Skin is normal, Skin temperature is warm Rash noted that is itchy, on groin Reports burning, itching. Musculoskeletal: No deficits noted. No signs and/or symptoms reported regarding the musculoskeletal system. Circulation, motion, and sensation intact. Range of motion: intact in all extremities. 01:11 Reassessment: Patient appears in no apparent distress at this time. No changes from lg3 previously documented assessment. Patient and/or family updated on plan of care and expected duration. Pain level reassessed. Patient is alert, oriented x 3, equal unlabored respirations, skin warm/dry/pink. Vital Signs: 00:09 BP 131 / 93; Pulse 111; Resp 16; Temp 98.3; Pulse Ox 100% ; Weight 59.42 kg; Height 4 vc1 ft. 9 in. ; Pain 8/10; 01:11 BP 127 / 89; Pulse 101; Resp 17 S; Pulse Ox 100% on R/A; lg3 00:09 Body Mass Index 28.35 (59.42 kg, 144.78 cm) vc1 00:09 Pain Scale: Adult vc1 ED Course: 00:04 Patient arrived in ED. al6 00:07 Toña Jarquin FNP-C is PHCP. kb 00:07 Raymond Elena MD is Attending Physician. kb 00:14 Triage completed. vc1 00:14 Arm band placed on right wrist. vc1 00:23 Erica Thrasher, MACY is Primary Nurse. lg3 00:31 Patient has correct armband on for positive identification. Placed in gown. Bed in low lg3 position. Call light in reach. Side rails up X 1. Client placed on continuous cardiac and pulse oximetry monitoring. NIBP monitoring applied. Door closed. Noise minimized. Warm blanket given. Pillow given. 01:12 No provider procedures requiring assistance completed. Patient did not have IV access lg3 during this emergency room visit. Administered Medications: 01:11 Drug: Dexamethasone IM 10 mg IM once Route: IM; Site: right deltoid; lg3 01:20 Follow up: Response: No adverse reaction lg3 01:11 Drug: Famotidine PO 20 mg PO once Route: PO; lg3 01:20 Follow up: Response: No adverse reaction lg3 01:11 Drug: diphenhydrAMINE PO 25 mg PO once Route: PO; lg3 01:20 Follow up: Response: No adverse reaction lg3 Medication: 00:31 VIS not applicable for this client. lg3 Outcome: 00:57 Discharge ordered by . jose 01:20 Discharged to home ambulatory, lg3 01:20 Condition: stable 01:20 Discharge instructions given to patient, Instructed on discharge instructions, follow up and referral plans. medication usage, Demonstrated understanding of instructions, follow-up care, medications, Prescriptions given X 1, 01:20 Patient left the ED. lg3 Signatures: Toña Jarquin, JAVA TECH-C JAVA TECH-Erica Cerda RN RN lg3 Maria A Jorgensen RN RN vc1 Mala Moraes6
[2025-01-21] MEDS ORDERED: DIPHENHYDRAMINE 25 MG TAB/CAP ONE (01:06)
[2025-01-21] MEDS ORDERED: FAMOTIDINE 20 MG TAB ONE (01:07)
[2025-01-21 02:04] VITALS: TEMP 98.3; O2SAT 100
[2025-01-21 02:05] VITALS: BP 127/89
== END 2025-01-21 01:20 | disposition home or self-care (01) ==
LOC: ER 00:01
DX: R21 Rash and other nonspecific skin eruption (principal)
CPT/HCPCS: 96372; 99284; J1100